=== PATIENT | male | born 1975 | race Caucasian/White ===

== ENCOUNTER 2016-04-30 06:28 | Day surgery (SDC) | payer OTHER ==
[2016-04-29 15:18] VITALS: BMI 31.3
[2016-04-30] MEDS ORDERED: PROPOFOL 20 ML ONE ×2 (07:32)
[2016-04-30] MEDS ORDERED: MIDAZOLAM HCL 2 MG/2 ML SINGLE DOSE VIAL ONE (07:32)
[2016-04-30] MEDS ORDERED: SUCCINYLCHOLINE CHLORIDE 200 MG/10 ML VIAL ONE (07:32)
[2016-04-30] MEDS ORDERED: ROCURONIUM BROMIDE 50 MG/5 ML VIAL ONE ×2 (07:32→09:16)
[2016-04-30] MEDS ORDERED: LIDOCAINE HCL/PF 2% SDV 5ML VIAL ONE (07:34)
[2016-04-30] MEDS ORDERED: ceFAZolin SODIUM 1 GM VIAL ONE (07:34)
[2016-04-30] MEDS ORDERED: BUPIVACAINE HCL/PF 0.5% (5MG/ML) 10 ML VIAL ONE (07:39)
--- NOTE | 2016-04-30 08:14 | HP ---
History & Physical Update - History History: No Change - Physical Physical: No Change - Assessment Assessment: No Change - Plan Plan: No Change (Here today for elective repair of his b/l inguinal hernia)
[2016-04-30] MEDS ORDERED: ceFAZolin SODIUM 1 GM VIAL IVPB ONE (08:39)
[2016-04-30] MEDS ORDERED: BUPIVACAINE HCL/PF 0.5% (5MG/ML) 10 ML VIAL IJ ONE ×2 (08:47)
[2016-04-30] MEDS ORDERED: HYDROmorphone HCL/PF 1 MG/ML VIAL (FOR PYXIS CHARGING ONLY) ONE (09:37)
[2016-04-30] MEDS ORDERED: oxyCODONE HCL 5 MG TABLET PO PRN (10:34)
[2016-04-30] MEDS ORDERED: ONDANSETRON 4 MG/2 ML VIAL IVPUSH PRN (10:34)
[2016-04-30] MEDS ORDERED: LACTATED RINGERS SOLUTION 1,000 ML IV SCH (10:45)
[2016-04-30] MEDS ORDERED: GLYCOPYRROLATE 0.2 MG/1 ML VIAL ONE (11:00)
[2016-04-30] MEDS ORDERED: NEOSTIGMINE METHYLSULFATE 0.5 MG/ML - 10 ML MDV ONE (11:00)
--- NOTE | 2016-04-30 11:33 | OP ---
Operative Note - Note: Operative Date: 04/30/16 Pre-Operative Diagnosis: Bilateral inguinal hernia Operation: Robotic repair right incarcerated inguinal hernia with mesh Findings: Patient only had an incarcerated right inguinal hernia. Post-Operative Diagnosis: Same as Pre-op Surgeon: Heriberto Perry Nuclear Cardiology Technologist: Kiko Sabillon Anesthesiologist/INTERN ARCHITECT: Madai Louis Anesthesia: General Specimens Removed: Lipoma of cord Estimated Blood Loss (mls): 10 Fluid Volume Replaced (mls): 1,700 Operative Report Dictated: Yes
--- NOTE | 2016-04-30 11:34 | SURG ---
Surgery Supervisor [employer] Note Supervisor [employer]: Kiko Sabillon PA-C Date of Service: 04/30/16 Diagnosis: Incarcerated right inguinal hernia Procedure: Robotic repair right incarcerated inguinal hernia with mesh I was present for the entirety of the operative procedure. For further detail, please refer to operative report. Visit type - Case Type Case Type: Scheduled Admission - New patient This patient is new to me today: Yes Date on this admission: 04/30/16
--- NOTE | 2016-04-30 12:47 | OP ---
DATE OF OPERATION: 04/30/2016 PROCEDURE: Robotic-assisted laparoscopic right inguinal hernia repair with mesh. PREOPERATIVE DIAGNOSIS: Bilateral inguinal hernia. POSTOPERATIVE DIAGNOSIS: Right inguinoscrotal hernia. SURGEON: Heriberto Perry MD RAILWAY STATION MANAGER: ISABELLA Marrero ANESTHESIA: General endotracheal. FINDINGS AND PROCEDURE: This is a 40-year-old male who presents with a longstanding history of a right inguinal bulge going down to the testicle. Patient had acute pain and tenderness of the right inguinal bulge 2 weeks prior, prompting emergency department visit. CT scan of the abdomen and pelvis revealed a large right inguinal hernia containing loops of intestine and a presumed left inguinal hernia. The hernia was reduced at the time, so the patient was discharged from the ED and referred for repair. On physical exam, patient has a reducible right inguinal bulge and a questionable left inguinal bulge, so patient was advised bilateral repair of the hernias and consent was obtained after discussing the risks, benefits, and alternatives to the procedure. Patient was brought to the operating room and placed in a supine position. General endotracheal anesthesia was administered. The abdomen was prepped and draped in the usual sterile fashion. A Arora catheter was inserted. The local anesthesia using 0.5% Marcaine was administered to the proposed incision sites. The peritoneal cavity was entered using the Veress needle technique via an 8-mm supraumbilical incision. Pneumoperitoneum was established. An 8-mm port was inserted through the supraumbilical incision. A 30-degree 3-D laparoscope was inserted and the peritoneal cavity was carefully inspected and was noted to be free of inadvertent injury. The 2 other 8-mm ports were placed on each side of the umbilicus 7 mm away from each other at the same level. The target organ was set, and the robotic arms were docked. An EndoWrist jocelyn was inserted at the right-sided port, connected to monopolar cautery. The fenestrated bipolar grasper was inserted at the left- sided port. Patient was placed in a steep Trendelenburg position. The undersigned scrubbed out to commence the console part of the procedure. The peritoneal cavity was again inspected, and both inguinal canals were inspected. The right inguinal canal was noted to contain a large hernia with incarcerated sigmoid colon. The left-sided inguinal region was noted to contain multiple omental adhesions and after taking these down, no left inguinal hernia was identified. Using the EndoWrist jocelyn the parietal peritoneum was incised at the level of the anterior-superior iliac spine to create the preperitoneal pocket and space. Further dissection using both the EndoWrist jocelyn and fenestrated bipolar was done until an adequate preperitoneal space was created laterally towards the anterior-superior iliac spine and medially down to the posterior part of the symphysis pubis. The inferior epigastric vessels were identified and followed distally towards the hernia sac. The hernia sac was carefully isolated or dissected away from the spermatic cord structures. This was followed towards internal ring. This was then carefully teased away from the spermatic cord structures to about 7 cm away from the large internal ring defect. A large lipoma of the cord was also excised away from the spermatic cord. After the dissection was deemed satisfactory, the severely attenuated internal ring was tightened using a continuous V-Loc No. 1 nonabsorbable suture. This was followed by deployment of the 11 x 15-cm ProGrip mesh ensuring at least 5 cm of overlap from the hernial defect. After the deployment was deemed satisfactory, the parietal peritoneum was then closed with running V-Loc 2-0 absorbable sutures. The needles were removed and the lipoma of the cord was placed in an Endobag and extracted via the left-sided port. The peritoneal cavity was carefully inspected. It was noted to be free of active bleeding or inadvertent injury. The robotic arms were undocked, and the pneumoperitoneum was evacuated. The ports were removed. The wounds were closed with subcuticular Biosyn 4-0 sutures and reinforced with Dermabond. The Arora catheter was removed, and the patient was successfully extubated. The patient was transferred to the postanesthesia care unit in satisfactory condition. ESTIMATED BLOOD LOSS: About 5 mL. WOUND CLASS: Clean. ANTIBIOTICS: The patient received 2 g of Ancef prior to the start of the procedure. Maximo [id number] MTDD
[2016-04-30 14:04] VITALS: TEMP 98.4
[2016-04-30 16:16] VITALS: BP 139/86; PULSE 96
--- NOTE | 2016-05-01 13:30 | PATH ---
Surgical Pathology Report Patient Name: HARPREET WINN Med. Rec. #: [id number] /Age/Gender: 1975 (Age: 40) / M Account: [id number] Location: [facility] Taken: 04/30/2016 Received: 04/30/2016 Reported: 05/01/2016 Physicians: Heriberto Perry M.D. Specimen(s) Received LIPOMA OF HERNIA CORD RIGHT SIDE Clinical History Inguinal hernia Final Diagnosis SOFT TISSUE, RIGHT HERNIA CORD LIPOMA, INGUINAL HERNIA REPAIR: MATURE BENIGN FATTY TISSUE CONSISTENT WITH LIPOMA. Electronically Signed Ciro Navas M.D. Gross Description Received in formalin, labeled "lipoma of right hernia cord" is an 8.0 x 4.3 x 2.2 cm yellow-brown, irregular, unoriented portion of yellow, lobulated adipose tissue with attached fibromembranous tissue. Dental Equipment Repairer sections are submitted in 2 cassettes. /04/30/2016 saudi04/30/2016
== END 2016-04-30 15:45 | disposition home or self-care (01) ==
LOC: JASU-SURG 06:28
PROVIDERS: ATTEND Surgery
PROC: 8E0W4CZ Robotic Assisted Procedure of Trunk Region, Percutaneous Endoscopic Approach (ICD-10-PCS; 2016-04-30)
PROC: 0YU54JZ Supplement Right Inguinal Region with Synthetic Substitute, Percutaneous Endoscopic Approach (ICD-10-PCS; principal; 2016-04-30 08:00)
DX: K40.90 Unilateral inguinal hernia, without obstruction or gangrene, not specified as recurrent (principal)
CPT/HCPCS: 49650; S2900; 88304-TC; 94760

== ENCOUNTER 2017-04-09 22:11 | Emergency (ER) | payer SELFPAY ==
[2017-04-09 22:32] VITALS: BP 143/92; PULSE 88; TEMP 98.7; BMI 31.3
--- NOTE | 2017-04-10 00:08 | PDOC ---
History of Present Illness - General Chief Complaint: Pain Stated Complaint: NECK PAIN Time Seen by Provider: 04/10/17 00:04 - History of Present Illness Initial Comments: 04/10/17 02:29 The patient is a 41 year old male with a history of DM who presents for evaluation of dizziness. The patient reports a 4 month history of intermittent dizziness worse with movement of his head and walking around. He notes worsening symptoms today as well as some mild neck pain prompting his presentation to the ED today. He denies any fevers, chills, headache, vision changes, nausea, vomiting, chest pain, SOB, numbness, weakness, tingling, abdominal pain, or changes with urination or bowel movements. Past History - Past Medical History Allergies/Adverse Reactions: Allergies Allergy/AdvReac Type Severity Reaction Status Date / Time No Known Drug Allergies Allergy Verified 04/09/17 22:29 Home Medications: Ambulatory Orders Aspirin Coated [Ecotrin -] 81 mg PO DAILY 04/29/16 Meclizine HCl [Antivert -] 25 mg PO TID PRN #21 tablet 04/10/17 COPD: No Diabetes: Yes (DIET CONTROLLED) Hypercholesterolemia: Yes - Immunization History Immunization Up to Date: No - Suicide/Smoking/Psychosocial Hx Smoking Status: Yes Smoking History: Current some day smoker Have you smoked in the past 12 months: Yes Number of Cigarettes Smoked Daily: 10 Information on smoking cessation initiated: No 'Breaking Loose' booklet given: 04/29/16 Hx Alcohol Use: No Drug/Substance Use Hx: No Substance Use Type: None Hx Substance Use Treatment: No Review of Systems - Review of Systems Comments:: 04/10/17 02:32 Constitutional: No fevers, chills, fatigue, malaise HEENT: No Rhinorrhea, nasal congestion, visual changes Cardiovascular: No chest pain, syncope, palpitations, lightheadedness Respiratory: No Cough, SOB, Hemoptysis, Gastrointestinal: No Abdominal pain, Nausea, Vomiting, Constipation, Diarrhea, Melena Genitourinary: No Dysuria, Frequency, Urgency, Hesitancy, Hematuria, Flank pain Musculoskeletal: No Myalgia, arthralgia Skin: No rashes, bruising, pallor Neurologic: Dizziness. No Headache, Numbness, Weakness, or Tingling Psychiatric: No Hallucinations. No SI or HI *Physical Exam - Vital Signs Last Vital Signs Temp Pulse Resp BP Pulse Ox 98.7 F 88 19 143/92 98 04/09/17 22:29 04/09/17 22:29 04/09/17 22:29 04/09/17 22:29 04/09/17 22:29 - Physical Exam Comments: 04/10/17 02:35 General Appearance: Nourished. No Apparent Distress HEENT: EOMI, DARYL. No Pharyngeal Erythema, Tonsillar Exudate, Tonsillar Erythema Neck: No Cervical Lymphadenopathy or C-spine tenderness Respiratory/Chest: Lungs Clear, Normal Breath Sounds. No Crackles, Rales, Rhonchi, Wheezing Cardiovascular: Regular Rhythm, Regular Rate. No Murmur, Gallops, Rubs Gastrointestinal/Abdominal: Normal Bowel Sounds, Soft. No Guarding, Rebound, Tenderness Musculoskeletal: No CVA Tenderness Extremity: Normal Capillary Refill Integumentary: Normal Color, Dry, Warm Neurologic: trigonometry tutor II-XII NML intact, Fully Oriented, Alert, Normal Mood/Affect, Normal Response, Motor Strength 5/5. Normal Finger to Nose and Heel to Kramer Medical Decision Making - Medical Decision Making 04/10/17 02:36 The patient is a 41 year old male with a history of DM who presents for evaluation of dizziness. Differential includes but is not limited to: Vertigo, intracranial process. Given the patient's history and physical, it is likely his symptoms are due to vertigo. However we will obtain a head and neck ct to evaluate for any intracranial process. We will treat the patient with meclizine and continue to monitor and reassess. 04/10/17 02:44 The patient reports improvement in his symptoms. Head and neck ct are unremarkable as preliminarily read by the theater projectionist radiologist pending official radiology read. We are comfortable discharging the patient home at this time. We discussed the results and the plan with the patient who voiced understanding and is agreeable with the plan. *DC/Admit/Observation/Transfer Diagnosis at time of Disposition: Vertigo - Discharge Dispostion Disposition: HOME Condition at time of disposition: Improved Admit: No - Prescriptions Prescriptions: Meclizine HCl [Antivert -] 25 mg PO TID PRN #21 tablet PRN Reason: Dizziness - Referrals Referrals: Alexx Navarro MD [Primary Care Provider] - - Patient Instructions Printed Discharge Instructions: DI for Vertigo Additional Instructions: Please return to the ER if you experience concerning or worsening symptoms including headache, fevers, or difficulty breathing. You were seen in the ER for dizziness. Your lab results and x-rays were normal. It is likely your symptoms are due to vertigo. We have sent a prescription to the pharmacy for which you can take up to 3 times a day as needed for dizziness. Please call to schedule a follow up appointment with your primary care provider within 1 week to discuss your ER visit. - Post Discharge Activity
[2017-04-10] MEDS ORDERED: MECLIZINE HCL 25 MG TABLET (FP) PO ONE (00:14)
--- NOTE | 2017-04-10 00:15 | PDOC ---
Attending Attestation - HPI HPI: 04/10/17 00:20 41 y.o male with significant PMHx of NIDDM, who presents to the emergency room complaining of 4 months of dizziness like the room is spinning and neck pain that significantly worsened today and exacerbated when turning his head. <Irina Beach - Last Filed: 04/10/17 00:20> - Resident Resident Name: Rocky Morley - ED Attending Attestation I have performed the following: I have examined & evaluated the patient, The case was reviewed & discussed with the resident, I agree w/resident's findings & plan, Exceptions are as noted - Physicial Exam PE: 04/10/17 00:25 General Appearance: Yes: Appropriately Dressed. No: Apparent Distress, Intoxicated HEENT: positive: EOMI, DARYL, Normal ENT Inspection, Normal Voice, TMs Normal, Pharynx Normal. negative: Pale Conjunctivae, Photophobia, Scleral Icterus (R), Scleral Icterus (L) Neck: positive: Trachea midline, Normal Thyroid, Supple. negative: Tender, Rigid, Carotid bruit, Stridor, Lymphadenopathy (R), Lymphadenopathy (L), Thyromegaly Respiratory/Chest: positive: Lungs Clear, Normal Breath Sounds. negative: Chest Tender, Respiratory Distress, Accessory Muscle Use, Labored Respiration, RES, Crackles, Rales, Rhonchi, Stridor, Wheezing, Dullness Cardiovascular: positive: Regular Rhythm, Regular Rate, S1, S2. negative: Edema , JVD, Murmur, Bradycardia, Tachycardia Vascular Pulses: Dorsalis-Pedis (R): 2+, Doralis-Pedis (L): 2+ Gastrointestinal/Abdominal: positive: Normal Bowel Sounds, Flat, Soft. negative : Tender, Organomegaly, Pulsatile Mass, Increased Bowel Sounds, Decreased BS, Distended, Guarding, Rebound, Hernia, Hepatomegaly, Spleenomegaly Lymphatic: negative: Adenopathy, Tenderness Musculoskeletal: positive: Normal Inspection. negative: CVA Tenderness, Decreased Range of Motion Extremity: positive: Normal Capillary Refill, Normal Inspection, Normal Range of Motion, Pelvis Stable. negative: Tender, Pedal Edema, Swelling, Erythema Integumentary: positive: Normal Color, Dry, Warm. negative: Cyanotic, Erythema , Jaundice, Rash Neurologic: positive: watch electrician II-XII NML intact, Fully Oriented, Alert, Normal Mood/ Affect, Motor Strength 5/5. negative: EOM Palsy, Facial Droop, Sensory Deficit - Medical Decision Making 04/10/17 02:27 Pt was treated and released <Hermilo Tamez - Last Filed: 04/10/17 02:27>
[2017-04-10] MEDS ORDERED: MECLIZINE HCL 25 MG TABLET (FP) ONE (00:29)
== END 2017-04-10 02:49 | disposition home or self-care (01) ==
LOC: JER 22:11
DX: R42 Dizziness and giddiness (principal); E11.9 Type 2 diabetes mellitus without complications
CPT/HCPCS: 70450-TC; 72125-TC; 99282-25

== ENCOUNTER 2017-10-26 14:44 | Emergency (ER) | payer OTHER ==
[2017-10-26 15:00] VITALS: BP 137/84; PULSE 92; TEMP 98.3; BMI 31.3
--- NOTE | 2017-10-26 15:17 | PDOC ---
History of Present Illness - General Chief Complaint: Eye Problem Stated Complaint: RASH Time Seen by Provider: 10/26/17 15:04 History Source: Patient Exam Limitations: Clinical Condition - History of Present Illness Initial Comments: 10/26/17 15:11 Patient with no PMhx present with complains of red rash which is very itchy to right side of face, neck area and right eyelid for 3 days now. Patient report he was grilling few days ago and wasnt sure if symptoms was caused by the heat from the grill. report nothing spilled onto his face. pt also with redness to right conjunctiva for same period. report he took claritin but itching still persist Timing/Duration: other (3 days) Severity: moderate Modifying Factors: improves with: other (nothing ) Associated Symptoms: reports: rash. denies: fever/chills, malaise, nausea/ vomiting Aspirin Received prior to arrival: Yes: no aspirin today Past History - Past Medical History Allergies/Adverse Reactions: Allergies Allergy/AdvReac Type Severity Reaction Status Date / Time No Known Drug Allergies Allergy Verified 10/26/17 14:56 Home Medications: Ambulatory Orders Aspirin Coated [Ecotrin -] 81 mg PO DAILY 04/29/16 Doxycycline Hyclate 100 mg PO BID #7 tablet 10/26/17 Hydrocortisone 2.5% Topical Cr [Anusol-Hc -] 1 applic RC BID PRN #1 tube Ofloxacin 0.3% Ophth Soln [Ocuflox -] 2 drop OP Q4H 5 Days #1 bottle 10/26/17 predniSONE [Deltasone -] 20 mg PO BID 5 Days #10 tablet 10/26/17 COPD: No Diabetes: Yes (DIET CONTROLLED) Hypercholesterolemia: Yes - Immunization History Immunization Up to Date: No - Suicide/Smoking/Psychosocial Hx Smoking Status: Yes Smoking History: Never smoked Have you smoked in the past 12 months: No Number of Cigarettes Smoked Daily: 10 Information on smoking cessation initiated: No 'Breaking Loose' booklet given: 04/29/16 Hx Alcohol Use: No Drug/Substance Use Hx: No Substance Use Type: None Hx Substance Use Treatment: No Review of Systems - Review of Systems Able to Perform ROS?: Yes Is the patient limited Citizen Of [place] proficient: No Constitutional: No: Chills, Diaphoresis, Fever, Loss of Appetite, Malaise, Night Sweats, Weakness, Weight Stable, Unintentional Wgt. Loss, Unexplained wgt Loss, Other HEENTM: Yes: See HPI (right eye redness). No: Eye Pain, Blurred Vision, Tearing , Recent change in vision, Double Vision, Cataracts, Ear Pain, Ocular Prothesis , Ear Discharge, Nose Pain, Nose Congestion, Tinnitus, Nose Bleeding, Hearing Loss, Throat Pain, Throat Swelling, Mouth Pain, Dental Problems, Difficulty Swallowing, Mouth Swelling, Other Respiratory: No: Symptoms reported, See HPI, Cough, Orthopnea, Shortness of Breath, SOB with Exertion, SOB at Rest, Stridor, Wheezing, Productive cough, Hemoptysis, Other Cardiac (ROS): No: Chest Pain, Edema, Irregular Heart Rate, Lightheadedness, Palpitations, Syncope, Chest Tightness, Other Musculoskeletal: No: Symptoms Reported, See HPI, Back Pain, Gout, Joint Pain, Joint Swelling, Muscle Pain, Muscle Weakness, Neck Pain, Joint Stiffness, Other Integumentary: Yes: Pruritus (to area of rash), Rash (right side of face and neck area) Neurological: Yes: See HPI. No: Symptoms reported, Headache, Numbness, Paresthesia, Pre-Existing Deficit, Seizure, Tingling, Tremors, Weakness, Unsteady Gait, Ataxia, Dizziness, Other Psychiatric: No: Anxiety, Depression, Frequent Crying, Stressors, Sleep Pattern Change, Emotional Problems, Mood Swings, Change in Appetite, Other Endocrine: No: Symptoms Reported, See HPI, Excessive Sweating, Flushing, Intolerance to Cold, Intolerance to Heat, Increased Hunger, Increased Thirst, Increased Urine, Unexplained Weight Gain, Unexplained Weight Loss, Change in Weight, Other Hematologic/Lymphatic: No: Symptoms Reported, See HPI, Anemia, Blood Clots, Easy Bleeding, Easy Bruising, Bleeding Diathesis, Lymph Node Abnormalities, Swollen Glands, Other All Other Systems: Reviewed and Negative *Physical Exam - Vital Signs Last Vital Signs Temp Pulse Resp BP Pulse Ox 98.3 F 92 H 18 137/84 98 10/26/17 14:53 10/26/17 14:53 10/26/17 14:53 10/26/17 14:53 10/26/17 14:53 - Physical Exam General Appearance: Yes: Nourished, Appropriately Dressed. No: Apparent Distress HEENT: positive: EOMI, DARYL, Normal Voice, TMs Normal, Pharynx Normal, Pale Conjunctivae (moderate injected right conjunctiva). negative: Nasal Congestion Neck: positive: Trachea midline, Supple Respiratory/Chest: positive: Lungs Clear, Normal Breath Sounds. negative: Respiratory Distress, Accessory Muscle Use Cardiovascular: positive: Regular Rhythm, Regular Rate, S1, S2 Musculoskeletal: positive: Other (multilple erythematous urticarial and vesicular rash to riight side of face, back of head, neck area and chin area on right side w/o excorations ) Extremity: positive: Normal Capillary Refill, Normal Inspection Integumentary: positive: Warm, Rash (diffused erythematous urticarial and vesiclar rashes to right side of face, neck area, chin w/o excoriations ) Neurologic: positive: Fully Oriented, Normal Mood/Affect, Normal Response Medical Decision Making - Medical Decision Making 10/26/17 15:21 Patient presenting with rash to face and injected right conjunctiva. symptoms likely due to thermal irritation with dermatitis and conjunctivitis . dc/ home on outpatient treatment with ophthalmology and dermatology follow-up *DC/Admit/Observation/Transfer Diagnosis at time of Disposition: Dermatitis Conjunctivitis Qualifiers: Conjunctivitis type: acute Acute conjunctivitis type: unspecified Laterality: right Qualified Code(s): H10.31 - Unspecified acute conjunctivitis, right eye - Discharge Dispostion Disposition: HOME Condition at time of disposition: Stable Decision to Admit order: No - Prescriptions Prescriptions: Doxycycline Hyclate 100 mg PO BID #7 tablet Hydrocortisone 2.5% Topical Cr [Anusol-Hc -] 1 applic RC BID PRN #1 tube PRN Reason: rash Ofloxacin 0.3% Ophth Soln [Ocuflox -] 2 drop OP Q4H 5 Days #1 bottle predniSONE [Deltasone -] 20 mg PO BID 5 Days #10 tablet - Referrals Referrals: Alexx Navarro MD [Primary Care Provider] - Kashif Garza MD [Non Staff, Medical] - Mahesh Morillo MD [Staff Physician] - - Patient Instructions Additional Instructions: take medication as prescribed. follow-up with referred ophthalmology - Post Discharge Activity
== END 2017-10-26 15:29 | disposition home or self-care (01) ==
LOC: JERFT 14:44
DX: L30.9 Dermatitis, unspecified (principal); H10.31 Unspecified acute conjunctivitis, right eye
CPT/HCPCS: 99281-25

== ENCOUNTER 2020-08-04 04:00 | Emergency (ER) | payer OTHER ==
[2020-08-04 04:47] VITALS: BMI 27.3
[2020-08-04] MEDS ORDERED: LACTATED RINGERS SOLUTION 1000 ML INFUS.BAG IV ONE (04:58)
[2020-08-04] MEDS ORDERED: ACETAMINOPHEN 1000 MG/100 ML VIAL (NON FORMULARY) IVPB ONE (04:58)
[2020-08-04] MEDS ORDERED: ACETAMINOPHEN INJECTION 100 ML IVPB ONE (05:01)
[2020-08-04 08:02] VITALS: BP 137/86; PULSE 80; TEMP 98.3
== END 2020-08-04 08:57 | disposition home or self-care (01) ==
LOC: JER 04:00
PROC: 3E0333Z Introduction of Anti-inflammatory into Peripheral Vein, Percutaneous Approach (ICD-10-PCS; principal; 2020-08-04)
DX: R51.9 Headache, unspecified (principal); R05 Cough; Z11.52 Encounter for screening for COVID-19
CPT/HCPCS: 71045-TC-FY; 87804; 93005; 93010; 99285-25; C9803; J0131; U0003; U0005

== ENCOUNTER 2021-06-13 23:16 | Emergency (ER) | payer OTHER ==
[2021-06-13 23:22] VITALS: BMI 31.3
[2021-06-13] MEDS ORDERED: ACETAMINOPHEN 1000 MG/100 ML BAG IVPB ONE (23:57)
[2021-06-14] MEDS ORDERED: ACETAMINOPHEN INJECTION 100 ML IVPB ONE (00:32)
[2021-06-14] MEDS ORDERED: FAMOTIDINE 20 MG/50 ML IVPB 20 MG/50 ML MG IVPB ONE ×2 (00:36→01:11)
[2021-06-14] MEDS ORDERED: MAG HYDROX/AL HYDROX/SIMETH -MYLANTA- ORAL SUSPENSION PO ONE (00:36)
[2021-06-14] MEDS ORDERED: MAG HYDROX/AL HYDROX/SIMETH 30 ML UNIT-DOSE CUP ONE (01:11)
[2021-06-14 02:12] LABS: BASO % 0.4 % (0-2.0); EOS % 1.8 % (0-4.5); HEMATOCRIT 46.2 % (35.4-49); HEMOGLOBIN 15.9 GM/dL (11.7-16.9); LYMPH % 33.5 % (8-40); MCH 29.5 pg (25.7-33.7); MCHC 34.4 g/dl (32.0-35.9); MEAN CELL VOLUME 85.9 fl (80-96); MEAN PLT VOLUME 10.7 fl (7.5-11.1); MONO % 9.3 % (3.8-10.2); PLATELET COUNT 214 10^3/uL (134-434); RBC 5.38 M/mm3 (4.00-5.60); WHITE BLOOD COUNT 6.9 K/mm3 (4.0-10.0)
[2021-06-14 02:50] LABS: BLOOD UREA NITROGEN 19.6 mg/dL (7-18); CALCIUM 8.8 mg/dL (8.5-10.1)
[2021-06-14 02:51] LABS: ALBUMIN 3.7 g/dl (3.4-5.0)
[2021-06-14 02:54] LABS: CREATININE 0.9 mg/dL (0.55-1.3)
[2021-06-14 02:55] LABS: BILIRUBIN,TOTAL 0.5 mg/dL (0.2-1)
[2021-06-14] MEDS ORDERED: ASPIRIN 81 MG CHEWABLE TABLETS PO ONE (04:44)
[2021-06-14] MEDS ORDERED: ASPIRIN 81 MG CHEWABLE TABLETS ONE (04:49)
[2021-06-14 09:49] VITALS: BP 141/95; PULSE 82; TEMP 97.9
== END 2021-06-14 09:49 | disposition home or self-care (01) ==
LOC: JER 23:16
PROC: 3E033GC Introduction of Other Therapeutic Substance into Peripheral Vein, Percutaneous Approach (ICD-10-PCS; principal; 2021-06-13)
DX: R07.9 Chest pain, unspecified (principal); R10.13 Epigastric pain
CPT/HCPCS: 36415; 71046-TC-FY; 80053; 82550; 83690; 84484; 85025; 93005; 93010; 96365; 96375; 99285-25

== ENCOUNTER 2022-03-28 12:46 | Emergency (ER) | payer OTHER ==
[2022-03-28 13:34] VITALS: BP 144/83; PULSE 98; RESP 20; TEMP 97.7; BMI 31.1
== END 2022-03-28 15:53 | disposition left against medical advice (07) ==
LOC: JER 12:46 → JERFT 12:46
DX: M79.604 Pain in right leg (principal); M79.605 Pain in left leg
CPT/HCPCS: 99282-25

== ENCOUNTER 2023-07-13 22:09 | Day surgery (SDC) | payer OTHER ==
[2023-07-13 22:15] VITALS: BMI 31.3
[2023-07-13] MEDS ORDERED: ACETAMINOPHEN INJECTION 100 ML IVPB ONE (23:25)
[2023-07-13] MEDS: ACETAMINOPHEN 1000 MG/100 ML BAG IVPB ONE (23:37)
[2023-07-13 23:45] LABS: BASO % 0.7 % (0-2.0); EOS % 1.7 % (0-4.5); HEMATOCRIT 44.1 % (35.4-49); HEMOGLOBIN 15.1 GM/dL (11.7-16.9); LYMPH % 16.4 % (8-40); MCH 29.5 pg (25.7-33.7); MCHC 34.3 g/dl (32.0-35.9); MEAN CELL VOLUME 85.9 fl (80-96); MEAN PLT VOLUME 9.4 fl (7.5-11.1); MONO % 8.8 % (3.8-10.2); NEUT % 72.4 % (42.8-82.8); PLATELET COUNT 245 10^3/uL (134-434); RBC 5.14 M/mm3 (4.00-5.60); WHITE BLOOD COUNT 11.2 K/mm3 (4.0-10.0)
[2023-07-13 23:47] LABS: INR 0.97 (0.83-1.09); PROTHROMBIN TIME (PATIENT) 11.2 SEC (9.7-13.0)
[2023-07-13 23:49] LABS: ACTIVATED PTT 29.9 SECONDS (25.2-36.5)
[2023-07-14 00:10] LABS: CHLORIDE 99 mmol/L (98-107); SODIUM 133 mmol/L (136-145)
[2023-07-14 00:12] LABS: ALBUMIN 3.4 g/dl (3.4-5.0); ANION GAP 9 mmol/L (4-13); CALCIUM 9.3 mg/dL (8.5-10.1); CO2 24 mmol/L (21-32)
[2023-07-14 00:16] LABS: SGOT/AST 9 U/L (15-37); SGPT/ALT 19 U/L (13-61)
[2023-07-14 00:17] LABS: BILIRUBIN,TOTAL 0.5 mg/dL (0.2-1); TOT PROT 6.9 g/dl (6.4-8.2)
[2023-07-14 00:19] LABS: ALK PHOS 89 U/L (45-117)
[2023-07-14 00:24] LABS: GLUCOSE,RANDOM 554 mg/dL (74-106)
[2023-07-14] MEDS: metFORMIN HCL 500 MG TABLET (FP) PO ONE (01:49)
[2023-07-14] MEDS ORDERED: GLUCAGON 1 MG KIT ONE (01:49)
[2023-07-14] MEDS: SODIUM CHLORIDE 1,000 ML IV STA (01:49)
[2023-07-14] MEDS ORDERED: metFORMIN HCL 500 MG TABLET (FP) ONE (01:51)
[2023-07-14] MEDS ORDERED: CEFTRIAXONE 1 GM/50 ML BAG ONE (03:21)
[2023-07-14] MEDS ORDERED: DOCUSATE SODIUM 100 MG CAPSULE (FP) PO PRN ×2 (03:47→17:04)
[2023-07-14] MEDS: CEFTRIAXONE 1,000 MG in DEXTROSE 5%-WATER - 50 ML IVPB ONE (03:47)
[2023-07-14] MEDS ORDERED: ACETAMINOPHEN 1000 MG/100 ML BAG IVPB PRN (03:49)
[2023-07-14] MEDS: INSULIN (NOVOLOG) ASPART 100 UNITS/ML 10ML VIAL SQ ONE (04:39)
[2023-07-14] MEDS: INSULIN ASPART SLIDING SCALE (NOVOLOG) 1 VIAL SQ SCH ×2 (05:05→21:30)
[2023-07-14] MEDS: SODIUM CHLORIDE 1,000 ML IV SCH ×3 (05:47→17:37)
[2023-07-14 07:57] LABS: BASO % 0.4 % (0-2.0); EOS % 3.6 % (0-4.5); HEMATOCRIT 39.4 % (35.4-49); HEMOGLOBIN 13.8 GM/dL (11.7-16.9); LYMPH % 26.4 % (8-40); MCH 29.8 pg (25.7-33.7); MCHC 34.9 g/dl (32.0-35.9); MEAN CELL VOLUME 85.2 fl (80-96); MEAN PLT VOLUME 9.5 fl (7.5-11.1); MONO % 10.5 % (3.8-10.2); NEUT % 59.1 % (42.8-82.8); PLATELET COUNT 233 10^3/uL (134-434); RBC 4.63 M/mm3 (4.00-5.60); RDW 13.8 % (11.9-15.9); WHITE BLOOD COUNT 8.7 K/mm3 (4.0-10.0)
[2023-07-14 08:16] LABS: POTASSIUM 3.9 mmol/L (3.5-5.1)
[2023-07-14 08:23] LABS: BLOOD UREA NITROGEN 12.2 mg/dL (7-18); CALCIUM 8.7 mg/dL (8.5-10.1); MAGNESIUM 2.1 mg/dL (1.8-2.4)
[2023-07-14 08:26] LABS: CREATININE 0.7 mg/dL (0.55-1.3)
[2023-07-14] MEDS ORDERED: INSULIN (NOVOLOG) ASPART 100 UNITS/ML 10ML VIAL ONE ×2 (11:24→11:28)
[2023-07-14] MEDS ORDERED: PIPERACILLIN/TAZOB 3.375 GM 3.375 GM/50 ML BAG IVPB ONE (12:50)
[2023-07-14] MEDS: PIPERACILLIN/TAZOB 3.375 GM 3.375 GM in DEXTROSE 5%-WATER - 50 ML IVPB SCH ×2 (12:55→18:24)
[2023-07-14] MEDS ORDERED: BUPIVACAINE HCL/PF 0.25% (2.5MG/ML) 10 ML VIAL ONE (14:06)
[2023-07-14] MEDS ORDERED: MIDAZOLAM HCL 2 MG/2 ML SINGLE DOSE VIAL ONE ×2 (14:53→15:07)
[2023-07-14] MEDS ORDERED: FENTANYL CITRATE/PF 50 MCG/ML VIAL ONE ×2 (14:53→14:56)
[2023-07-14] MEDS ORDERED: ONDANSETRON 4 MG/2 ML VIAL ONE (15:01)
[2023-07-14] MEDS ORDERED: PROPOFOL 20 ML ONE (15:17)
[2023-07-14] MEDS ORDERED: ONDANSETRON 4 MG/2 ML VIAL IVPUSH PRN ×2 (15:44→17:04)
[2023-07-14] MEDS: LACTATED RINGERS SOLUTION 1,000 ML IV SCH ×2 (17:10→17:37)
[2023-07-14 17:12] VITALS: RESP 18
[2023-07-14] MEDS: ACETAMINOPHEN 1000 MG/100 ML BAG IVPB PRN (22:56)
[2023-07-15] MEDS: oxyCODONE HCL 5 MG TABLET PO PRN (04:44)
[2023-07-15] MEDS: metFORMIN HCL 500 MG TABLET (FP) PO SCH (07:01)
[2023-07-15 09:22] LABS: BASO % 0.4 % (0-2.0); EOS % 2.5 % (0-4.5); HEMATOCRIT 43.3 % (35.4-49); HEMOGLOBIN 14.4 GM/dL (11.7-16.9); LYMPH % 19.2 % (8-40); MCH 28.7 pg (25.7-33.7); MCHC 33.2 g/dl (32.0-35.9); MEAN CELL VOLUME 86.5 fl (80-96); MEAN PLT VOLUME 9.1 fl (7.5-11.1); NEUT % 67.9 % (42.8-82.8); PLATELET COUNT 245 10^3/uL (134-434); RBC 5.01 M/mm3 (4.00-5.60); RDW 13.7 % (11.9-15.9); WHITE BLOOD COUNT 8.7 K/mm3 (4.0-10.0)
[2023-07-15 09:43] LABS: POTASSIUM 3.9 mmol/L (3.5-5.1)
[2023-07-15 09:46] LABS: BLOOD UREA NITROGEN 14.3 mg/dL (7-18)
[2023-07-15 09:50] LABS: BILIRUBIN,TOTAL 0.7 mg/dL (0.2-1); CREATININE 0.8 mg/dL (0.55-1.3); TOT PROT 6.5 g/dl (6.4-8.2)
[2023-07-15] MEDS ORDERED: CEFTRIAXONE 1 GM in DEXTROSE 5%-WATER - 50 ML IVPB SCH (10:00)
[2023-07-15 10:01] LABS: ALBUMIN 3.1 g/dl (3.4-5.0)
[2023-07-15 15:26] VITALS: BP 135/78; PULSE 94; TEMP 98.9
== END 2023-07-15 16:11 | disposition home or self-care (01) ==
LOC: JER 22:09 → UNDOADMOB 07-14 03:33 → JERBED 07-14 03:33 → JASUSAT 07-14 13:16 → J5S 07-14 17:19 → JASUSAT 07-15 16:11
PROVIDERS: ATTEND Internal Medicine
PROC: 3E03329 Introduction of Other Anti-infective into Peripheral Vein, Percutaneous Approach (ICD-10-PCS; 2023-07-14)
PROC: 3E03329 Introduction of Other Anti-infective into Peripheral Vein, Percutaneous Approach (ICD-10-PCS; 2023-07-14)
PROC: 3E03329 Introduction of Other Anti-infective into Peripheral Vein, Percutaneous Approach (ICD-10-PCS; 2023-07-14)
PROC: 3E033NZ Introduction of Analgesics, Hypnotics, Sedatives into Peripheral Vein, Percutaneous Approach (ICD-10-PCS; 2023-07-14)
PROC: 3E03329 Introduction of Other Anti-infective into Peripheral Vein, Percutaneous Approach (ICD-10-PCS; 2023-07-14)
PROC: 3E0337Z Introduction of Electrolytic and Water Balance Substance into Peripheral Vein, Percutaneous Approach (ICD-10-PCS; 2023-07-14)
PROC: 3E013VG Introduction of Insulin into Subcutaneous Tissue, Percutaneous Approach (ICD-10-PCS; 2023-07-14)
PROC: 3E013VG Introduction of Insulin into Subcutaneous Tissue, Percutaneous Approach (ICD-10-PCS; 2023-07-14)
PROC: 3E013VG Introduction of Insulin into Subcutaneous Tissue, Percutaneous Approach (ICD-10-PCS; 2023-07-14)
PROC: 3E03329 Introduction of Other Anti-infective into Peripheral Vein, Percutaneous Approach (ICD-10-PCS; principal; 2023-07-14 13:30)
DX: K61.1 Rectal abscess (principal); M79.18 Myalgia, other site
CPT/HCPCS: 36415; 72193-TC; 80048; 80053; 82962; 83735; 85025; 85610; 85730; 86850; 86900; 86901; 87070; 87076; 87205; 93005; 93010; 94760; 99285-25; J0131; Q9967

== ENCOUNTER 2024-01-13 21:02 | Emergency (ER) | payer OTHER ==
[2024-01-13 21:13] VITALS: BP 128/83; PULSE 100; RESP 20; TEMP 97.9; BMI 31.3
[2024-01-13] MEDS ORDERED: LIDOCAINE HCL 2% JELLY 6 ML TP ONE (22:25)
[2024-01-13] MEDS: LIDOCAINE HCL 2% JELLY 6 ML TP ONE (22:36)
== END 2024-01-13 23:01 | disposition home or self-care (01) ==
LOC: JER 21:02
PROC: 0T2BX0Z Change Drainage Device in Bladder, External Approach (ICD-10-PCS; principal; 2024-01-13)
DX: T83.091A Other mechanical complication of indwelling urethral catheter, initial encounter (principal)
CPT/HCPCS: 99283-25

== ENCOUNTER 2024-01-14 07:24 | Emergency (ER) | payer OTHER ==
[2024-01-14 07:35] VITALS: BP 138/93; PULSE 103; RESP 16; TEMP 97.9; BMI 31.3
[2024-01-14] MEDS: ACETAMINOPHEN 500 MG TABLET (FP) PO ONE ×2 (09:08→10:45)
[2024-01-14] MEDS ORDERED: LIDOCAINE HCL 2% JELLY 11 ML TP ONE ×2 (09:10→09:50)
[2024-01-14] MEDS: LIDOCAINE HCL 2% JELLY 10 ML CARTRIDGE UR ONE (10:05)
[2024-01-14 10:26] LABS: EPI CELLS 6 /uL (0-25.1); HYALINE CASTS 1 /uL (0-3.1); PH,URINE 5.5 (5.0-8.0); URINE APPEARANCE CLEAR; URINE BACTERIA 21 /uL (0-1359); URINE BILIRUBIN NEGATIVE (NEGATIVE); URINE COLOR YELLOW; URINE GLUCOSE (UA) 3+ (NEGATIVE); URINE KETONE NEGATIVE (NEGATIVE); URINE LEUK ESTERASE NEGATIVE (NEGATIVE); URINE NITRITE NEGATIVE (NEGATIVE); URINE PROTEIN NEGATIVE (NEGATIVE); URINE RBC 285 /uL (0-23.9); URINE UROBILINOGEN 0.2 mg/dL (0.2-1.0); URINE WBC 33 /uL (0-25.8)
[2024-01-14] MEDS ORDERED: ACETAMINOPHEN 500 MG TABLET (FP) ONE (10:38)
== END 2024-01-14 11:01 | disposition home or self-care (01) ==
LOC: JER 07:24
PROC: 0T2BX0Z Change Drainage Device in Bladder, External Approach (ICD-10-PCS; principal; 2024-01-14)
DX: T83.84XA Pain due to genitourinary prosthetic devices, implants and grafts, initial encounter (principal); N48.5 Ulcer of penis; R10.30 Lower abdominal pain, unspecified
CPT/HCPCS: 81003; 87086; 99284-25

== ENCOUNTER 2024-01-24 08:53 | Emergency (ER) | payer OTHER ==
[2024-01-24 09:00] VITALS: BMI 31.3
[2024-01-24] MEDS: LACTATED RINGERS SOLUTION 1000 ML INFUS.BAG IV ONE (10:14)
[2024-01-24 10:15] LABS: BASO % 0.3 % (0-2.0); EOS % 0.3 % (0-4.5); HEMATOCRIT 40.7 % (35.4-49); HEMOGLOBIN 14.2 GM/dL (11.7-16.9); LYMPH % 9.3 % (8-40); MCH 29.4 pg (25.7-33.7); MCHC 34.9 g/dl (32.0-35.9); MEAN CELL VOLUME 84.2 fl (80-96); MEAN PLT VOLUME 8.3 fl (7.5-11.1); MONO % 10.8 % (3.8-10.2); NEUT % 79.3 % (42.8-82.8); PLATELET COUNT 266 10^3/uL (134-434); RBC 4.83 M/mm3 (4.00-5.60); RDW 14.8 % (11.9-15.9); WHITE BLOOD COUNT 15.9 K/mm3 (4.0-10.0)
[2024-01-24 10:30] LABS: POTASSIUM 3.9 mmol/L (3.5-5.1)
[2024-01-24 10:32] LABS: CALCIUM 8.8 mg/dL (8.5-10.1)
[2024-01-24 10:33] LABS: ALBUMIN 2.8 g/dl (3.4-5.0)
[2024-01-24 10:34] LABS: EPI CELLS 0 /uL (0-25.1); HYALINE CASTS 6 /uL (0-3.1); URINE APPEARANCE CLOUDY; URINE BACTERIA >9,000 /uL (0-1359); URINE BILIRUBIN NEGATIVE (NEGATIVE); URINE COLOR YELLOW; URINE GLUCOSE (UA) TRACE (NEGATIVE); URINE KETONE 1+ (NEGATIVE); URINE LEUK ESTERASE 3+ (NEGATIVE); URINE NITRITE POSITIVE (NEGATIVE); URINE PROTEIN 1+ (NEGATIVE); URINE RBC 37 /uL (0-23.9); URINE UROBILINOGEN 0.2 mg/dL (0.2-1.0); URINE WBC 676 /uL (0-25.8)
[2024-01-24 10:35] LABS: CREATININE 0.7 mg/dL (0.55-1.3)
[2024-01-24 10:37] LABS: BILIRUBIN,TOTAL 0.5 mg/dL (0.2-1); TOT PROT 6.7 g/dl (6.4-8.2)
[2024-01-24] MEDS: CEFTRIAXONE 1 GM in DEXTROSE 5%-WATER - 100 ML IVPB ONE (11:15)
[2024-01-24] MEDS ORDERED: CEFTRIAXONE 1 GM/50 ML BAG ONE (11:15)
[2024-01-24 12:08] LABS: HIV INTERPRETATION NEGATIVE (NEGATIVE)
[2024-01-24] MEDS: SODIUM PHOSPHATE/NA BIPHOS 133 ML ENEMA PR ONE (18:22)
[2024-01-24 18:30] VITALS: BP 130/70; PULSE 92; RESP 16; TEMP 98.6
== END 2024-01-24 18:44 | disposition home or self-care (01) ==
LOC: JER 08:53
PROC: 0T2BX0Z Change Drainage Device in Bladder, External Approach (ICD-10-PCS; principal; 2024-01-24)
PROC: 3E03329 Introduction of Other Anti-infective into Peripheral Vein, Percutaneous Approach (ICD-10-PCS; 2024-01-24)
DX: K59.00 Constipation, unspecified (principal); R33.9 Retention of urine, unspecified; R50.9 Fever, unspecified; R10.30 Lower abdominal pain, unspecified; R11.10 Vomiting, unspecified; Z20.822 Contact with and (suspected) exposure to COVID-19
CPT/HCPCS: 0241U-QW; 36415; 74177-TC; 80053; 81003; 85025; 86803; 87086; 87186; 87389; 99285-25